=== PATIENT | female | born 1990 | race Caucasian/White ===

== ENCOUNTER 2017-05-27 17:07 | Emergency (ER) | payer MEDICAID ==
[~2017-05-27] VITALS: Ht 162.6 cm; Wt 93.9 kg
[~2017-05-27 17:07] MED LIST: IBUP-1223 PO; OXYC-302 PO
[2017-05-27] MEDS ORDERED: SODIUM CHLORIDE 0.9% 1,000 ML IV ONE (17:44)
[2017-05-27] MEDS ORDERED: KETOROLAC 30 MG/1 ML IVPush ONE (18:00)
[2017-05-27] MEDS ORDERED: METOCLOPRAMIDE 5 MG/ML, 2ML IVPush ONE (18:00)
[2017-05-27] MEDS ORDERED: SODIUM CHLORIDE 0.9% 1,000ML IVBOLUS ONE (18:00)
[2017-05-27] MEDS ORDERED: DIPHENHYDRAMINE 50 MG/ML, 1ML IVPush ONE (18:00)
[2017-05-27] MEDS ORDERED: DIPHENHYDRAMINE 50 MG/ML, 1ML ONE (18:10)
[2017-05-27] MEDS ORDERED: METOCLOPRAMIDE 5 MG/ML, 2ML ONE (18:10)
[2017-05-27] MEDS ORDERED: KETOROLAC 30 MG/1 ML ONE (18:10)
[2017-05-27 19:34] VITALS: BP 116/62
== END 2017-05-27 19:58 | disposition home or self-care (01) ==
LOC: ED 19:48
DX: G43.009 Migraine without aura, not intractable, without status migrainosus (principal)
CPT/HCPCS: 70450; 96361; 96374; 96375; 99285; J1200; J1885; J2765; J7030

== ENCOUNTER 2018-04-08 19:10 | Emergency (ER) | payer MEDICAID ==
[2018-04-08] MEDS ORDERED: IBUPROFEN 800 MG TABLET PO STA (19:35)
[2018-04-08] MEDS ORDERED: IBUPROFEN 200 MG TABLET ONE (19:39)
[2018-04-08 20:02] LABS: RAPID INFLUENZA A Negative (Negative); RAPID INFLUENZA B Negative (Negative)
[2018-04-08 20:32] VITALS: BP 120/68
== END 2018-04-08 20:34 | disposition home or self-care (01) ==
LOC: ED 20:05
DX: B34.9 Viral infection, unspecified (principal); R53.1 Weakness
CPT/HCPCS: 87400; 99284

== ENCOUNTER 2018-07-20 19:41 | Observation (INO) | payer MEDICAID ==
[~2018-07-20] VITALS: Ht 160 cm; Wt 85.4 kg
--- NOTE | 2018-07-20 20:47 | NUR ---
PT TO ED FOR ABD AND BILATERAL FLANK PAIN SINCE WAKING TODAY. PT STATES SHE FEELS BLOATED AND CRAMPY. CONNECTED TO MONITOR. VSS. AWAITIN GMD ASSESSMENT. CALL LIGHT WITHIN REACH. NO NEEDS AT THIS TIME.
[2018-07-20 20:55] LABS: BASOPHILS % (AUTO) 1 % (0-1); EOSINOPHILS # (AUTO) 0.33 x10^3/uL (0-0.4); EOSINOPHILS % (AUTO) 2 % (1-7); LYMPHOCYTES # (AUTO) 3.43 x10^3/uL (1-3.4); LYMPHOCYTES % (AUTO) 23 % (22-44); MD NO; MEAN CORPUSCULAR HEMOGLOBIN 32.7 pg (27.0-34.8); MEAN CORPUSCULAR HGB CONC 34.3 g/dL (32.4-35.8); MEAN CORPUSCULAR VOLUME 95.5 fL (80-100); MONOCYTES # (AUTO) 1.07 x10^3/uL (0.2-0.8); MONOCYTES % (AUTO) 7 % (2-9); NEUTROPHILS # (AUTO) 10.05 x10^3/uL (1.8-6.8); NEUTROPHILS % (AUTO) 67 % (42-75); PLATELET COUNT 215 x10^3/uL (130-400); RED BLOOD COUNT 4.62 x10^6/uL (3.82-5.3); RED CELL DISTRIBUTION WIDTH 13.7 % (9.6-15.2)
[2018-07-20 21:03] LABS: ALANINE AMINOTRANSFERASE 48 U/L (12-78); ALBUMIN 3.7 g/dL (3.4-5.0); ANION GAP 5 mmol/L (5-15); CALCIUM 8.7 mg/dL (8.5-10.1); CHLORIDE 106 mmol/L (98-107); CREATININE 0.69 mg/dL (0.55-1.02)
[2018-07-20 21:08] LABS: ALKALINE PHOSPHATASE 86 U/L (45-117); BILIRUBIN,TOTAL 0.4 mg/dL (0.2-1.0); TOTAL PROTEIN 7.3 g/dL (6.4-8.2)
[2018-07-20 21:11] LABS: MICROSCOPIC NOT IND
--- NOTE | 2018-07-20 21:40 | NUR ---
additional orders received for us. awaiting us and ua resutls at this time. pt resting in room watching tv. no needs at this time. call light within reach.
--- NOTE | 2018-07-20 21:55 | NUR ---
pt to us at this time. awaiting ua results. report to CONSTANTINO Valentine.
[2018-07-20 21:56] LABS: CULTURE INDICATED? NO
--- NOTE | 2018-07-20 22:04 | NUR ---
REPORT RECIEVED, PT TO US AT THIS TIME, AWAITING URINE RESULT
[2018-07-20] MEDS ORDERED: ONDANSETRON 2MG/ML, 2ML IVPush ONE (23:00)
--- NOTE | 2018-07-20 23:28 | NUR ---
PT TO CT
[2018-07-20] MEDS ORDERED: ONDANSETRON 2MG/ML, 2ML ONE (23:41)
[2018-07-20] MEDS ORDERED: MORPHINE SULFATE 4 MG/ML, 1ML ONE (23:41)
[2018-07-20] MEDS: MORPHINE SULFATE 4 MG/ML, 1ML IVPush PRN (23:47)
--- NOTE | 2018-07-20 23:47 | NUR ---
CT COMPLETE, PT MEDICATED FOR PAIN, VSS, NO ADDITIONAL COMPLAINTS
[2018-07-20] MEDS ORDERED: OMNIPAQUE 350 MG/ML, 100ML BOTTLE ONE (23:48)
--- NOTE | 2018-07-21 00:46 | NUR ---
PT RESTING IN BED, NO COMPLAINTS, STATES HER ABD FEELS FULL, BUT NOT TOO PAINFUL. VSS, AWAITING OB CONSULT
--- NOTE | 2018-07-21 01:17 | NUR ---
PT UP TO RESTROOM, REPORTS PAIN WITH AMBULATION, STATES IT IS BETTER WHEN LYING DOWN, DECLINES MEDS AT THIS TIME
[2018-07-21] MEDS ORDERED: MORPHINE SULFATE 4 MG/ML, 1ML ONE (01:32)
[2018-07-21] MEDS: MORPHINE SULFATE 4 MG/ML, 1ML IVPush PRN (01:40)
--- NOTE | 2018-07-21 01:44 | NUR ---
PT MEDICATED FOR INCREASED PAIN, DR BRAR AT BEDSIDE
--- NOTE | 2018-07-21 01:57 | NUR ---
REPORT CALLED TO OR
[2018-07-21] MEDS ORDERED: ONDANSETRON 2MG/ML, 2ML IVPush PRN (02:00)
[2018-07-21] MEDS ORDERED: MORPHINE SULFATE 4 MG/ML, 1ML IVPush PRN (02:00)
[2018-07-21] MEDS ORDERED: FENTANYL PF 250 MCG/5ML ONE (02:21)
[2018-07-21] MEDS ORDERED: BUPIVACAINE/PF 0.25% ONE (02:24)
[2018-07-21] MEDS ORDERED: EPINEPHRINE 1 MG/ML, 1ML ONE (02:24)
[2018-07-21] MEDS ORDERED: CEFAZOLIN 1,000 MG ONE (02:40)
[2018-07-21] MEDS ORDERED: DEXAMETHASONE 4 MG/ML, 1ML ONE (02:44)
[2018-07-21] MEDS ORDERED: ROCURONIUM 10MG/ML,5ML ONE (02:45)
[2018-07-21] MEDS ORDERED: SUCCINYLCHOLINE 20 MG/ML, 10ML ONE (02:45)
[2018-07-21] MEDS ORDERED: PROPOFOL 10 MG/ML, 20ML ONE (02:45)
[2018-07-21] MEDS ORDERED: BUPIVACAINE/PF-EPI 0.25% 1:200K IM ONE (02:55)
[2018-07-21] MEDS ORDERED: PROMETHAZINE 25 MG/ML, 1ML IV PRN (03:30)
[2018-07-21] MEDS ORDERED: ONDANSETRON 2MG/ML, 2ML IV PRN ×2 (03:30→10:00)
[2018-07-21] MEDS ORDERED: ACETAMINOPHEN 325 MG TABLET PO PRN (03:30)
[2018-07-21] MEDS ORDERED: FENTANYL PF 100 MCG/2ML IV PRN (03:30)
[2018-07-21] MEDS ORDERED: hydrALAzine 20 MG/ML, 1ML IV PRN (03:30)
[2018-07-21] MEDS ORDERED: MEPERIDINE/PF 25MG/0.5ML IVPush PRN (03:30)
[2018-07-21] MEDS ORDERED: OXYcodone 5 MG/5 ML ORAL.SOL UDC PO PRN (03:30)
[2018-07-21] MEDS ORDERED: LABETALOL 5MG/ML, 20ML IV PRN (03:30)
[2018-07-21] MEDS ORDERED: HYDROmorphone 2 MG/ML, 1ML IVPush PRN (03:30)
[2018-07-21] MEDS ORDERED: ONDANSETRON 2MG/ML, 2ML ONE (03:35)
[2018-07-21] MEDS ORDERED: OXYcodone 5 MG/5 ML ORAL.SOL UDC ONE (04:16)
[2018-07-21] MEDS ORDERED: ACETAMINOPHEN 650 MG/20.3 ML UDC ONE (04:16)
[2018-07-21 06:57] VITALS: BP 106/72
[2018-07-21] MEDS ORDERED: OXYcodone/APAP 5/325MG TABLET ONE (09:41)
[2018-07-21] MEDS ORDERED: OXYcodone/APAP 5/325MG TABLET PO PRN (10:00)
[2018-07-21] MEDS ORDERED: HYDROmorphone 1 MG/ML, 1ML IV PRN (10:00)
[2018-07-21] MEDS ORDERED: PROMETHAZINE 25 MG/ML, 1ML IV ONE (10:00)
[2018-07-21] MEDS ORDERED: KETOROLAC 30 MG/1 ML IV PRN (10:00)
[2018-07-21] MEDS ORDERED: OXYC1TAB7 PO (11:24)
[2018-07-21] MEDS ORDERED: IBUP-1222 PO (11:26)
== END 2018-07-21 11:40 | disposition home or self-care (01) ==
LOC: ED 22:22 → EDIP 07-21 01:57 → INTOOBSV 07-21 01:57 → 4NOR 07-21 05:04
PROVIDERS: ADMIT Obstetrics & Gynecology; ATTEND Obstetrics & Gynecology
DX: K66.1 Hemoperitoneum (principal); E28.2 Polycystic ovarian syndrome; F17.210 Nicotine dependence, cigarettes, uncomplicated; Z87.440 Personal history of urinary (tract) infections; Z97.5 Presence of (intrauterine) contraceptive device
CPT/HCPCS: 36415; 49322; 74177; 76830; 80053; 81003; 84703; 85025; 86850; 86900; 86923; 96374; 96375; 96376; 99291; G0378; J0171; J0330; J0690; J1100; J2405; J2704; J3010; J3490; Q9967

== ENCOUNTER 2018-11-08 21:34 | Emergency (ER) | payer MEDICAID ==
[~2018-11-08] VITALS: Ht 160 cm; Wt 82.0 kg
[~2018-11-08 21:34] MED LIST changes: +IBUP-1222 PO; +OXYC1TAB7 PO
[2018-11-08 21:37] VITALS: BP 135/94
[2018-11-08] MEDS ORDERED: KETOROLAC 30 MG/1 ML ONE (22:18)
[2018-11-08] MEDS ORDERED: KETOROLAC 30 MG/1 ML IM ONE (22:30)
--- NOTE | 2018-11-08 23:02 | NUR ---
AIRSTIRRUP AND CRUTCHES PLACED. DC EDUCATION PROVIDED, PT DEMONSTRATES UNDERSTANDING. PT AMBULATED STEADILY TO DC WITH RN
== END 2018-11-08 23:04 | disposition home or self-care (01) ==
LOC: ED 22:58
DX: S93.402A Sprain of unspecified ligament of left ankle, initial encounter (principal); G89.11 Acute pain due to trauma; F17.210 Nicotine dependence, cigarettes, uncomplicated; X50.1XXA Overexertion from prolonged static or awkward postures, initial encounter; Y93.89 Activity, other specified; Y92.89 Other specified places as the place of occurrence of the external cause; Y99.8 Other external cause status
CPT/HCPCS: 73610; 96372; 99283; J1885

== ENCOUNTER 2019-06-25 15:18 | Emergency (ER) | payer MEDICAID ==
[~2019-06-25] VITALS: Ht 162.6 cm; Wt 89.7 kg
[2019-06-25 15:25] VITALS: BP 120/79
--- NOTE | 2019-06-25 15:33 | NUR ---
PT HERE WITH C/O FACIAL SWELLING S/P GLF INTO WALL ON THURSDAY NIGHT. PT HAS BRUISING AROUND LEFT EYE, DENIES NAUSEA/CONFUSION/VISION CHANGES.
--- NOTE | 2019-06-25 16:45 | NUR ---
Patient/Caregiver given discharge instructions and they have confirmed that they understand the instructions. Patient ambulatory with steady gait.
== END 2019-06-25 16:49 | disposition home or self-care (01) ==
LOC: ED 16:43
DX: S00.12XA Contusion of left eyelid and periocular area, initial encounter (principal); S00.83XA Contusion of other part of head, initial encounter; H11.32 Conjunctival hemorrhage, left eye; X58.XXXA Exposure to other specified factors, initial encounter; Y93.89 Activity, other specified; Y92.009 Unspecified place in unspecified non-institutional (private) residence as the place of occurrence of the external cause; Y99.8 Other external cause status
CPT/HCPCS: 70450; 70486; 99284

== ENCOUNTER 2020-04-04 16:20 | Emergency (ER) | payer MEDICAID ==
[~2020-04-04] VITALS: Ht 160 cm; Wt 82.1 kg
--- NOTE | 2020-04-04 16:56 | NUR ---
PT REPORT FROM CONSTANTINO WAGONER. PT CARE TO BE ASSUMED.
--- NOTE | 2020-04-04 16:57 | NUR ---
PT REPORT TO BREAK RN. PT CARE TRANSFERRED.
[2020-04-04] MEDS ORDERED: ONDANSETRON 2MG/ML, 2ML ONE (17:16)
[2020-04-04] MEDS ORDERED: MORPHINE SULFATE 4 MG/ML, 1ML ONE (17:17)
[2020-04-04 17:27] LABS: BASOPHILS % (AUTO) 1 % (0-1); EOSINOPHILS % (AUTO) 5 % (1-7); LYMPHOCYTES % (AUTO) 35 % (22-44); MEAN CORPUSCULAR HEMOGLOBIN 32.6 pg (27.0-34.8); MEAN CORPUSCULAR HGB CONC 33.4 g/dL (32.4-35.8); MEAN PLATELET VOLUME 9.4 fL (7.4-10.4); MONOCYTES % (AUTO) 9 % (2-9); NEUTROPHILS % (AUTO) 50 % (42-75); PLATELET COUNT 203 x10^3/uL (130-400); RED BLOOD COUNT 4.34 x10^6/uL (3.82-5.3)
[2020-04-04 17:28] LABS: MD NO
[2020-04-04] MEDS ORDERED: SODIUM CHLORIDE FLUSH 10ML SYR IVF ONE (17:30)
[2020-04-04] MEDS ORDERED: MORPHINE SULFATE 4 MG/ML, 1ML IVPush PRN (17:30)
[2020-04-04] MEDS ORDERED: ONDANSETRON 2MG/ML, 2ML IVPush ONE (17:30)
[2020-04-04 17:38] LABS: ALBUMIN 3.8 g/dL (3.4-5.0); ANION GAP 4 mmol/L (5-15); CALCIUM 9.1 mg/dL (8.5-10.1); CHLORIDE 107 mmol/L (98-107); CREATININE 0.79 mg/dL (0.55-1.02)
--- NOTE | 2020-04-04 18:31 | NUR ---
OVERHEARD PT USING OWN CELL PHONE, HAVING A HEATED DISCUSSION.
[2020-04-04 19:03] LABS: MICROSCOPIC AUTO
[2020-04-04 19:25] VITALS: BP 108/56
== END 2020-04-04 19:29 | disposition home or self-care (01) ==
LOC: ED 18:28
DX: R10.32 Left lower quadrant pain (principal); Z87.42 Personal history of other diseases of the female genital tract; F17.210 Nicotine dependence, cigarettes, uncomplicated
CPT/HCPCS: 36415; 76830; 80048; 81001; 82040; 84703; 85025; 96374; 96375; 99284; J2270; J2405

== ENCOUNTER 2020-11-19 13:19 | Emergency (ER) | payer MEDICAID ==
[~2020-11-19] VITALS: Ht 162.6 cm; Wt 83.9 kg
[~2020-11-19 13:19] MED LIST changes: -OXYC-302 PO; +OXYC1TAB14 PO
[2020-11-19 14:20] VITALS: BP 106/61
--- NOTE | 2020-11-19 14:23 | NUR ---
patient vitals rechecked @[phone]
== END 2020-11-19 15:00 | disposition home or self-care (01) ==
LOC: ED 14:50
DX: K04.7 Periapical abscess without sinus (principal); K08.89 Other specified disorders of teeth and supporting structures
CPT/HCPCS: 99283

== ENCOUNTER 2021-01-23 10:56 | Emergency (ER) | payer MEDICAID ==
[~2021-01-23] VITALS: Ht 160 cm; Wt 84.2 kg
--- NOTE | 2021-01-23 11:34 | NUR ---
manager business intelligence completed and pt awaiting PA exam with orders. Call light in reach and positioning of HOB changed for pt comfort.
[2021-01-23] MEDS ORDERED: HYDROcodone/APAP 5/325 TABLET PO ONE (12:30)
[2021-01-23] MEDS ORDERED: HYDROcodone/APAP 5/325 TABLET ONE (12:46)
--- NOTE | 2021-01-23 12:48 | NUR ---
Pt medicated for pain as ordered.
--- NOTE | 2021-01-23 13:08 | NUR ---
Xray results reviewed and chart marked for recheck. Pt assisted to bathroom and back to room by benefits technician.
[2021-01-23 13:16] VITALS: BP 111/75
== END 2021-01-23 13:23 | disposition home or self-care (01) ==
LOC: ED 11:24
DX: S20.212A Contusion of left front wall of thorax, initial encounter (principal); F17.210 Nicotine dependence, cigarettes, uncomplicated; G43.909 Migraine, unspecified, not intractable, without status migrainosus; W01.0XXA Fall on same level from slipping, tripping and stumbling without subsequent striking against object, initial encounter; Y93.89 Activity, other specified; Y92.009 Unspecified place in unspecified non-institutional (private) residence as the place of occurrence of the external cause; Y99.8 Other external cause status
CPT/HCPCS: 99283; 99406